=== PATIENT | male | born 1955 | race Caucasian/White ===

== ENCOUNTER 2017-09-02 09:00 | Outpatient (RCR) | payer BC ==
[~2017-09-02 09:00] MED LIST: ATORVASTATIN CA20 MG PO; BYSTOLIC10 MG PO; INVOKANA 100 MG; LISINOPRIL2.5 MG PO; LYRICA75 MG; METFORMIN HCL850 MG PO; RANEXA500 MG PO
== END 2017-09-05 ==
LOC: PT 09:00
PROVIDERS: ATTEND Neurological Surgery
DX: M48.061 Spinal stenosis, lumbar region without neurogenic claudication (principal)

== ENCOUNTER 2017-10-05 09:00 | Outpatient (RCR) | payer BC | END 2017-10-06 | LOC: PT 09:00 | PROVIDERS: ATTEND Neurological Surgery | DX: M48.061 Spinal stenosis, lumbar region without neurogenic claudication (principal) ==

== ENCOUNTER 2017-10-07 08:53 | Outpatient (RCR) | payer BC | END 2017-11-03 | LOC: PT 08:53 | PROVIDERS: ATTEND Neurological Surgery | DX: M48.061 Spinal stenosis, lumbar region without neurogenic claudication (principal) ==